=== PATIENT | male | born 1955 | race Caucasian/White ===

== ENCOUNTER 2023-05-08 13:19 | Inpatient (IN) | payer OTHER ==
[2023-05-02 16:12] LABS: BASOPHILS # (AUTO) 0.03 K/uL (0.00-0.20); BASOPHILS % (AUTO) 0.5 % (0.0-5.0); EOSINOPHILS # (AUTO) 0.07 K/uL (0.00-0.70); EOSINOPHILS % (AUTO) 1.1 % (0.0-8.0); HEMATOCRIT 44.2 % (42-54); IMMATURE GRANULOCYTE ABSOLUTE 0.02 K/uL (0-1); LYMPHOCYTES # (AUTO) 1.7 K/uL (1.0-4.8); LYMPHOCYTES % (AUTO) 27.5 % (21.0-51.0); MEAN CORPUSCULAR HEMOGLOBIN 21.6 pg (27.0-33.0); MEAN CORPUSCULAR HGB CONC 28.7 g/dL (32.0-36.0); MONOCYTES # (AUTO) 0.6 K/uL (0.1-1.0); MONOCYTES % (AUTO) 9.4 % (3.0-13.0); NEUTROPHILS # (AUTO) 3.9 K/uL (1.8-7.7); NEUTROPHILS % (AUTO) 61.2 % (40.0-77.0); PLATELET COUNT (AUTO) 225 K/uL (130-400); RED BLOOD CELL COUNT(AUTO) 5.89 MIL/uL (4.50-6.20); RED CELL DISTRIBUTION WIDTH 24.1 % (11.0-15.5); WHITE BLOOD COUNT (AUTO) 6.3 K/uL (4.8-10.8)
[2023-05-02 16:14] VITALS: BP 174/82; PULSE 63; RESP 18
[2023-05-02 16:27] LABS: INR < 0.93 (0.85-1.15); PROTHROMBIN TIME 10.7 SEC (9.6-11.6)
[2023-05-02 16:29] LABS: PARTIAL THROMBOPLASTIN TIME 30.8 SEC (26.3-35.5)
[2023-05-02 16:40] LABS: ALBUMIN 3.4 g/dL (3.5-5.0); BILIRUBIN,TOTAL 0.2 mg/dL (0.2-1.0); CREATININE 0.9 mg/dL (0.5-1.5); POTASSIUM 4.2 mmol/L (3.5-5.1); TOTAL PROTEIN, SERUM 7.6 g/dL (6.0-8.3)
[2023-05-02 17:31] LABS: PLATELET MORPHOLOGY LARGE PLTS PRESENT
[~2023-05-08] VITALS: Ht 180.3 cm; Wt 121.9 kg
[~2023-05-08 13:19] MED LIST: SUCR1TAB2 PO
[2023-05-09] VITALS (28 sets, daily range): BP systolic 132–173; BP diastolic 64–83; PULSE 70–87; RESP 15–20; O2SAT 94–97
[2023-05-09] MEDS ORDERED: MEROPENEM 1 GM VIAL ONE (09:14)
[2023-05-09] MEDS ORDERED: LACTATED RINGERS 1000ML 1,000 ML IV ONE (09:14)
[2023-05-09] MEDS ORDERED: BUPIVACAINE/PF 0.5% 30ML VIAL ONE (09:17)
[2023-05-09] MEDS ORDERED: KETAMINE HCL 100 MG/ML 5ML VIAL IJ ONE (09:17)
[2023-05-09] MEDS ORDERED: LIDOCAINE 2%-EPI 1:200,000 20 ML VIAL IJ ONE ×2 (09:18→10:09)
[2023-05-09] MEDS ORDERED: KETOROLAC 15MG/ML VIAL (15MG/ML) ONE (09:18)
[2023-05-09] MEDS ORDERED: ACETAMINOPHEN 1,000 MG/100 ML VIAL IV ONE (09:18)
[2023-05-09] MEDS ORDERED: LIDOCAINE HCL-MPF 2% 10ML AMP IJ ONE (09:19)
[2023-05-09] MEDS ORDERED: LIDOCAINE PF 100MG/5ML (2%) SYRINGE 5ML ONE (09:25)
[2023-05-09] MEDS ORDERED: FENTANYL CITRATE PF 50 MCG/1 ML 2ML VIAL ONE ×2 (09:26→14:30)
[2023-05-09] MEDS ORDERED: PROPOFOL 10 MG/ML 20ML VIAL IV ONE (09:26)
[2023-05-09] MEDS ORDERED: ROCURONIUM 10MG/1ML SYR 10 MG/ML ML ONE ×2 (09:26→10:39)
[2023-05-09] MEDS ORDERED: BUPIVACAINE/PF 0.5% 30ML VIAL INJ ONE (10:11)
[2023-05-09] MEDS ORDERED: PHENYLEPHRINE HCL 10 MG/ML 1ML VIAL IV ONE (10:15)
[2023-05-09] MEDS ORDERED: ONDANSETRON 4MG INJ ONE ×2 (10:17→14:29)
[2023-05-09] MEDS ORDERED: DEXAMETHASONE SOD PHOSPHATE 4 MG/ML 1ML VIAL ONE (10:17)
[2023-05-09] MEDS ORDERED: INDOCYANINE GREEN 25 MG VIAL IJ ONE (11:14)
[2023-05-09] MEDS ORDERED: NEOSTIGMINE 5MG/5ML SYR IV ONE (13:33)
[2023-05-09] MEDS ORDERED: GLYCOPYRROLATE 1 MG/5 ML SYRINGE ONE (13:33)
[2023-05-09] MEDS ORDERED: OXYCODONE HCL 20 MG/ML ORAL.CONC 0.25ML PO PRN (14:00)
[2023-05-09] MEDS: ACETAMINOPHEN 325 MG TAB PO SCH ×2 (14:00→20:12)
[2023-05-09] MEDS ORDERED: ONDANSETRON 4MG INJ IVP PRN (14:00)
[2023-05-09] MEDS ORDERED: LACTATED RINGERS 1000ML 1,000 ML IV SCH (14:00)
[2023-05-09] MEDS ORDERED: INSULIN HUMULIN R 100 UNIT/ML 3ML SQ PRN (14:00)
[2023-05-09] MEDS: GABAPENTIN 100 MG CAPSULE PO SCH ×2 (14:00→20:24)
[2023-05-09] MEDS ORDERED: MORPHINE 2 MG SYG ONE (14:19)
[2023-05-09] MEDS ORDERED: HYDRALAZINE 20MG/ML VIAL IV PRN (16:30)
[2023-05-09] MEDS: HYDROMORPHONE 0.5 MG SYG (0.5MG/0.5ML) IVP PRN ×2 (16:48→22:42)
[2023-05-09] MEDS ORDERED: AMLODIPINE 5 MG TAB PO ONE (17:00)
[2023-05-09] MEDS ORDERED: OXYCODONE HCL 5 MG TAB PO PRN (20:30)
[2023-05-09] MEDS: HEPARIN 5,000 UNIT VIAL SQ SCH (22:39)
[2023-05-10 04:00] VITALS: BP 136/74; PULSE 78; RESP 20
[2023-05-10] MEDS: HYDROMORPHONE 0.5 MG SYG (0.5MG/0.5ML) IVP PRN ×3 (04:46→22:51)
[2023-05-10 04:47] LABS: BASOPHILS # (AUTO) 0.01 K/uL (0.00-0.20); BASOPHILS % (AUTO) 0.1 % (0.0-5.0); HEMATOCRIT 38.1 % (42-54); IMMATURE GRANULOCYTE ABSOLUTE 0.04 K/uL (0-1); LYMPHOCYTES # (AUTO) 0.7 K/uL (1.0-4.8); LYMPHOCYTES % (AUTO) 6.4 % (21.0-51.0); MEAN CORPUSCULAR HEMOGLOBIN 21.7 pg (27.0-33.0); MEAN CORPUSCULAR HGB CONC 29.4 g/dL (32.0-36.0); MEAN CORPUSCULAR VOLUME 73.7 fL (79-99); MONOCYTES % (AUTO) 8.9 % (3.0-13.0); NEUTROPHILS # (AUTO) 9.3 K/uL (1.8-7.7); NEUTROPHILS % (AUTO) 84.2 % (40.0-77.0); PLATELET COUNT (AUTO) 190 K/uL (130-400); RED BLOOD CELL COUNT(AUTO) 5.17 MIL/uL (4.50-6.20); RED CELL DISTRIBUTION WIDTH 22.6 % (11.0-15.5)
[2023-05-10 05:02] LABS: CREATININE 1.1 mg/dL (0.5-1.5); POTASSIUM 4.2 mmol/L (3.5-5.1)
[2023-05-10 05:34] LABS: WBC MORPHOLOGY CONSISTENT W/DIFF
[2023-05-10] MEDS: ACETAMINOPHEN 325 MG TAB PO SCH ×3 (06:01→20:36)
[2023-05-10 06:30] VITALS: PULSE 71; RESP 18; O2SAT 98
[2023-05-10 08:49] VITALS: BP 139/81; PULSE 66; RESP 19
[2023-05-10] MEDS: GABAPENTIN 100 MG CAPSULE PO SCH ×3 (09:00→20:36)
[2023-05-10] MEDS: AMLODIPINE 5 MG TAB PO SCH (09:13)
[2023-05-10] MEDS: HEPARIN 5,000 UNIT VIAL SQ SCH ×3 (09:18→20:38)
[2023-05-10 18:05] VITALS: BP 160/85; PULSE 78; RESP 19
[2023-05-10 20:00] VITALS: BP 147/64; PULSE 71; RESP 19; O2SAT 95
[2023-05-11 04:00] VITALS: BP 154/77; PULSE 73; RESP 18
[2023-05-11 05:08] LABS: CREATININE 0.8 mg/dL (0.5-1.5); POTASSIUM 4.1 mmol/L (3.5-5.1)
[2023-05-11 05:55] LABS: BASOPHILS # (AUTO) 0.03 K/uL (0.00-0.20); BASOPHILS % (AUTO) 0.3 % (0.0-5.0); EOSINOPHILS # (AUTO) 0.03 K/uL (0.00-0.70); EOSINOPHILS % (AUTO) 0.3 % (0.0-8.0); HEMATOCRIT 41.2 % (42-54); IMMATURE GRANULOCYTE ABSOLUTE 0.03 K/uL (0-1); LYMPHOCYTES # (AUTO) 1.5 K/uL (1.0-4.8); LYMPHOCYTES % (AUTO) 14.9 % (21.0-51.0); MEAN CORPUSCULAR HEMOGLOBIN 21.7 pg (27.0-33.0); MEAN CORPUSCULAR HGB CONC 29.6 g/dL (32.0-36.0); MEAN CORPUSCULAR VOLUME 73.2 fL (79-99); MONOCYTES # (AUTO) 0.7 K/uL (0.1-1.0); MONOCYTES % (AUTO) 6.6 % (3.0-13.0); NEUTROPHILS # (AUTO) 7.7 K/uL (1.8-7.7); NEUTROPHILS % (AUTO) 77.6 % (40.0-77.0); PLATELET COUNT (AUTO) 195 K/uL (130-400); RED BLOOD CELL COUNT(AUTO) 5.63 MIL/uL (4.50-6.20); RED CELL DISTRIBUTION WIDTH 22.6 % (11.0-15.5); WHITE BLOOD COUNT (AUTO) 9.9 K/uL (4.8-10.8)
[2023-05-11] MEDS: ACETAMINOPHEN 325 MG TAB PO SCH (06:16)
[2023-05-11] MEDS: HYDROMORPHONE 0.5 MG SYG (0.5MG/0.5ML) IVP PRN ×2 (06:18→10:40)
[2023-05-11 08:00] VITALS: BP 136/67; PULSE 78; RESP 16
[2023-05-11] MEDS: HEPARIN 5,000 UNIT VIAL SQ SCH (08:54)
[2023-05-11] MEDS: AMLODIPINE 5 MG TAB PO SCH (08:54)
[2023-05-11] MEDS: GABAPENTIN 100 MG CAPSULE PO SCH (08:55)
== END 2023-05-11 11:35 | disposition home or self-care (01) | DRG 331 ==
LOC: DAHIP 05-09 08:45 → 4AH 05-09 15:10
PROVIDERS: ADMIT Surgery; ATTEND Surgery
PROC: 0DBU4ZZ Excision of Omentum, Percutaneous Endoscopic Approach (ICD-10-PCS; 2023-05-09)
PROC: 8E0W4CZ Robotic Assisted Procedure of Trunk Region, Percutaneous Endoscopic Approach (ICD-10-PCS; 2023-05-09)
PROC: 0DTF4ZZ Resection of Right Large Intestine, Percutaneous Endoscopic Approach (ICD-10-PCS; principal; 2023-05-09 09:51)
PROC: 0WUF47Z Supplement Abdominal Wall with Autologous Tissue Substitute, Percutaneous Endoscopic Approach (ICD-10-PCS; 2023-05-09 09:51)
DX: C18.2 Malignant neoplasm of ascending colon (principal); I10 Essential (primary) hypertension
CPT/HCPCS: 36415; 80048; 80053; 82948; 85025; 85610; 85730; 86850; 86900; 86901; 88309; 93005; A4344; G0378; J0360; J1100; J1170; J1644; J1815; J1885; J2001; J2185; J2270; J2371; J2405; J2704; J2710; J3010; J3490; J7030; J7120; A4215; A4221; A4222; A4223; A4600; A4649; A4663; A4930; A6260; C1769; G0168; G8980-CH; G8983-CH; J0665

== ENCOUNTER 2024-05-22 06:03 | Day surgery (SDC) | payer OTHER ==
[2024-05-22] VITALS (9 sets, daily range): BP systolic 141–168; BP diastolic 67–93; PULSE 66–77; RESP 14–20; TEMP 97.4–97.7
[~2024-05-22] VITALS: Ht 180.3 cm; Wt 117.9 kg
[2024-05-22] MEDS: 0.9%NACL 1000ML 1,000 ML IV ONE (06:50)
[2024-05-22] MEDS ORDERED: proPOFol 10 MG/ML 20ML VIAL IV ONE (07:23)
[2024-05-22] MEDS ORDERED: LIDOCAINE HCL 1% 20 ML VIAL ONE (07:24)
== END 2024-05-22 08:45 | disposition home or self-care (01) ==
LOC: ENDO 06:03 → DAH 06:03 → ENDO 08:45
PROVIDERS: ATTEND Internal Medicine Gastroenterology
DX: D50.0 Iron deficiency anemia secondary to blood loss (chronic) (principal); K57.30 Diverticulosis of large intestine without perforation or abscess without bleeding; D12.3 Benign neoplasm of transverse colon; Z98.890 Other specified postprocedural states; Z85.038 Personal history of other malignant neoplasm of large intestine; Z88.0 Allergy status to penicillin; Z80.0 Family history of malignant neoplasm of digestive organs; Z86.2 Personal history of diseases of the blood and blood-forming organs and certain disorders involving the immune mechanism; Z98.0 Intestinal bypass and anastomosis status; Z79.899 Other long term (current) drug therapy
CPT/HCPCS: 45380; J7030 ×2; J2704; A4620; A4215 ×2; A4223; A4222; A4221; A4663; A4606; J3490